=== PATIENT | female | born 1975 | race Caucasian/White ===

== ENCOUNTER 2022-09-06 17:25 | Emergency (ER) | payer MEDICARE, MEDICAID, SELFPAY ==
[2022-09-06 17:30] VITALS: BP 233/122; PULSE 83; RESP 16; TEMP 36.6; O2SAT 100; BMI 27.3
[2022-09-06 17:41] VITALS: PULSE 76; O2SAT 100
--- NOTE | 2022-09-06 17:49 | DI.US.S_ITS ---
PROCEDURE: US PELVIC COMPLETE INDICATIONS: BLEEDING TECHNIQUE: Real-time scanning was performed of the pelvic organs, with image documentation. Additional endovaginal scanning was necessary due to incomplete visualization of the adnexal and endometrial structures by transabdominal scanning. COMPARISON: None. FINDINGS: Uterus: Uterus is anteverted and normal in size at 7.6 x 5.0 x 3.9 cm. The myometrium is homogeneous. The endometrium measures 7 mm combined thickness. Ovaries: The right ovary measures 2.6 x 1.6 x 1.2 cm, with a calculated ovarian volume of 3 cc. The left ovary measures 1.6 x 1.6 x 1.5 cm, with a calculated ovarian volume of 2 cc. The ovaries have a normal sonographic appearance. Less than 12 follicles can be seen in each ovary. No adnexal masses are seen. Other: No pathologic free abdominal or pelvic fluid. Postvoid residual urinary bladder volume of 85 cc. IMPRESSION: 1. Endometrial thickness of 7 mm, unremarkable for a premenopausal patient. If the patient is postmenopausal, this thickness would be abnormal in the setting of postmenopausal bleeding and endometrial hyperplasia or carcinoma could be considered. 2. Unremarkable sonographic appearance of the ovaries. 3. Postvoid residual urinary bladder volume of 85 cc. We strive to produce accurate, complete, and clear reports of imaging services. To assist us in improving patient care, this report was composed using standard report templates and voice recognition software. Therefore, it may contain abnormal punctuation, insertions and/or omissions. Occasional wrong-word or sound-alike substitutions may occur. Though we review the report and make efforts to correct it, we do recommend that the report be read carefully in proper context to recognize any text inaccuracies. Dictated by: Clinton Hathaway M.D. on 09/06/2022 at 19:35 Approved by: Clinton Hathaway M.D. on 09/06/2022 at 19:39
[2022-09-06 18:00] VITALS: PULSE 71; O2SAT 100
[2022-09-06 18:01] VITALS: BP 211/97; PULSE 69; O2SAT 100
[2022-09-06 18:11] LABS: Add Manual Diff / Slide Review NO; Alanine Aminotransferase 24 IU/L (<35); Albumin 4.6 g/dL (3.5-5.0); Albumin Globulin Ratio 1.4 (1.0-2.8); Alkaline Phosphatase 67 U/L (38-126); Aspartate Aminotransferase 41 IU/L (14-36); BUN Creatinine Ratio 15.1 (6-22); Basophils Absolute Auto 100 /uL (0-100); Bilirubin Total 0.4 mg/dL (0.2-1.3); Blood Urea Nitrogen 11 mg/dL (7-17); Carbon Dioxide 24 mmol/L (22-32); Chloride 104 mmol/L (98-107); Eosinophils Absolute Auto 200 /uL (0-450); Eosinophils Percent Auto 2.8 % (2-4); Estimated Glomerular Filt Rate > 60 mL/min (>60); Globulin 3.3 g/dL (1.7-4.1); Glucose 173 mg/dL (70-100); HEMOLYSIS < 15 (0-50); Hematocrit 43.2 % (36-46); Lymphocytes Absolute Auto 2200 /uL (1100-4500); Lymphocytes Percent Auto 30.2 % (25-40); Magnesium 1.9 mg/dL (1.6-2.3); Mean Corpuscular HGB Conc 34.6 % (30-36); Mean Corpuscular Hemoglobin 30.7 PG (26-34); Mean Corpuscular Volume 88.6 fL (80-100); Monocytes Absolute Auto 400 /uL (0-900); Monocytes Percent Auto 5.8 % (3-14); Neutrophils Absolute Auto 4400 /uL (1500-7000); Neutrophils Percent Auto 60.2 % (50-75); Platelet Count 334 X10^3/uL (150-400); Potassium 3.3 mmol/L (3.4-5.1); Red Blood Cell Count 4.88 X10^6/uL (4.0-5.2); Red Cell Distribution Width 13.1 % (11.6-14.8); Sodium 140 mmol/L (137-145); Total Protein 7.9 g/dL (6.3-8.2); White Blood Cell Count 7.3 X10^3/uL (4.5-11.0)
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
[2022-09-06 18:27] LABS: HCG Quantitative /Beta subunit < 2.4 mIU/mL
--- NOTE | 2022-09-06 19:19 | PC.NURSE ---
Physician at bedside. States its ok for pt to be off the monitor.
[2022-09-06 19:24] LABS: RBC Urine >100/HPF (0-5/HPF); WBC Urine 10-30/HPF (0-5/HPF)
[2022-09-06 19:25] LABS: Bacteria Urine None Seen; Squamous Epithelial Cell Urine 1-5 /HPF (0-5/HPF)
[2022-09-06] MEDS: TRANEXAMIC ACID 1,000 MG in SODIUM CHLORIDE 0.9% 100 ML 200 MG IV (21:09)
[2022-09-06 21:54] VITALS: BP 176/92; PULSE 74; RESP 20; O2SAT 99
[2022-09-08 15:22] LABS: Free T4, Direct Thyroxine 1.23 ng/dL (0.78-2.19)
== END 2022-09-06 21:55 | disposition home or self-care (01) ==
PROVIDERS: Nurse Practitioner Critical Care Medicine; Emergency Provider Emergency Medicine
DX: N92.4 Excessive bleeding in the premenopausal period (principal); Z78.0 Asymptomatic menopausal state; F43.12 Post-traumatic stress disorder, chronic; R55 Syncope and collapse
CPT/HCPCS: 36415; 76830; 76856; 80053; 81003; 81015; 81025; 83735; 84439; 84443; 84702; 85025; 87086; 96365; 99284

== ENCOUNTER 2022-12-17 10:16 | Emergency (ER) | payer MEDICARE, OTHER, SELFPAY ==
[2022-12-17 10:23] VITALS: BP 186/87; PULSE 82; RESP 18; TEMP 36.8; O2SAT 99; BMI 26.6
--- NOTE | 2022-12-17 10:27 | DI.RAD.S_ITS ---
PROCEDURE: XR FOOT LT MIN 3V INDICATIONS: left foot pain/ swelling TECHNIQUE: 3 views of the foot were acquired. COMPARISON: None. FINDINGS: Bones: No fractures or dislocations. No suspicious bony lesions. Soft tissues: No tibiotalar joint effusion. Achilles tendon appears normal. IMPRESSION: No evidence acute bony abnormality. If clinical suspicion and/or symptoms persist, further assessment with repeat plain films, or advanced imaging (e.g., CT, MRI, or bone scan) may be helpful for further assessment. Dictated by: Akash Mcnamara M.D. on 12/17/2022 at 10:47 Approved by: Akash Mcnamara M.D. on 12/17/2022 at 10:52
[2022-12-17] MEDS: IBUPROFEN 400 MG TABLET 800 MG PO (10:32)
[2022-12-17] MEDS: ACETAMINOPHEN 325 MG TABLET 650 MG PO (10:32)
--- NOTE | 2022-12-17 11:26 | ED_ITS ---
HPI - Extremity Injury (Lower) <LAVERN Armenta - Last Filed: 12/17/22 12:51> General Chief Complaint: Extremity Injury, Lower Stated Complaint: foot injury Time Seen by Provider: 12/17/22 11:09 Source: patient Mode of arrival: Wheelchair History of Present Illness HPI Narrative: This is a 47-year-old female presents to the emergency department with foot injury and ankle pain that has progressed since an initial flexion injury of her foot. She states that she stepped on the garbage can lid and felt like she hurt her anterior midfoot on the right and then as she walked on it more, the pain had intensified. She states that she pivoted her weight while at the grocery store and then her pain got much worse in the same region. She states that the pain is worse with bearing weight and moving. Related Data Previous Rx's Medication Instructions Recorded bupropion HCl 150 mg tablet,12 hr 150 mg PO BEDTIME #30 ea 09/06/22 sustained-release gabapentin 100 mg capsule 100 mg PO BEDTIME #90 caps 09/06/22 lamotrigine 100 mg tablet 100 mg PO DAILY #60 tabs 09/06/22 (Subvenite) tranexamic acid 650 mg tablet 1,300 mg PO Q12H #20 tabs 09/06/22 diclofenac epolamine 1.3 % 1 patch topical BID #30 ea 12/17/22 transdermal 12 hour patch lidocaine 5 % topical patch 1 patch topical Q12HR PRN pain #30 12/17/22 ea oxycodone-acetaminophen 5 mg-325 1 tab PO Q8H PRN pain #10 tabs 12/17/22 mg tablet (Percocet) Allergies Allergy/AdvReac Type Severity Reaction Status Date / Time codeine Allergy Severe ITCHING Verified 12/17/22 10:27 erythromycin base Allergy Severe Rash Verified 12/17/22 10:27 Review of Systems <LAVERN Armenta - Last Filed: 12/17/22 12:51> Review of Systems ROS Unobtainable: All systems reviewed & are unremarkable except as noted in HPI and below Patient History <LAVERN Armenta - Last Filed: 12/17/22 12:51> Medical History Bipolar 1 disorder Chronic post-traumatic stress disorder Cristal-menopause Pulmonary embolism Social History Smoking Status: Former smoker Smoking Status: Former smoker alcohol intake frequency: 0-2 drinks per day Substance Use Type: does not use Exam <LAVERN Armenta - Last Filed: 12/17/22 12:51> Narrative Exam Narrative: MSK: Patient has tenderness over the medial midfoot and ATFL to palpation, mild erythema, edema, and pain is exacerbated by dorsiflexion and plantar extension over the ATFL, no CFL tenderness or tenderness over the Achilles tendon, PT and DP pulses are 2+, brisk cap refill, no ROM deficit. Patient states it is worse when bearing weight and it has progressed throughout the day. No tenderness over bilateral malleoli, no bony tenderness to palpation Initial Vital Signs Initial Vital Signs: Vital Signs Temperature 98.2 F 12/17/22 10:23 Pulse Rate 82 12/17/22 10:23 Respiratory Rate 18 12/17/22 10:23 Blood Pressure 186/87 H 12/17/22 10:23 Pulse Oximetry 99 12/17/22 10:23 Oxygen Delivery Method Room Air 12/17/22 10:23 <Beatrice Tello DO - Last Filed: 12/17/22 19:04> Initial Vital Signs Initial Vital Signs: Vital Signs Temperature 98.2 F 12/17/22 10:23 Pulse Rate 82 12/17/22 10:23 Respiratory Rate 18 12/17/22 10:23 Blood Pressure 186/87 H 12/17/22 10:23 Pulse Oximetry 99 12/17/22 10:23 Oxygen Delivery Method Room Air 12/17/22 10:23 Procedures <LAVERN Armenta - Last Filed: 12/17/22 12:51> Orthopedic Splinting/Casting Injury #1: Side: left Lower Extremity Injury Location: ankle and foot Lower Extremity Immobilizer: boot orthosis Post splinting neuro exam: intact Post splinting vascular exam: intact Placed by: Nursing Course <LAVERN Armenta - Last Filed: 12/17/22 12:51> Orders Ordered: ED Orders 12/17/22 10:27 XR foot LT min 3V Stat Discontinued Medications Acetaminophen (Acetaminophen 325 Mg Tablet) 650 mg PO NOW ONE Stop: 12/17/22 10:29 Last Admin: 12/17/22 10:32 Dose: 650 mg Documented By: JESUS Ibuprofen (Ibuprofen 400 Mg Tablet) 800 mg PO NOW ONE Stop: 12/17/22 10:29 Last Admin: 12/17/22 10:32 Dose: 800 mg Documented By: JESUS Lidocaine (Lidocaine Patch 1 Each Adh..Patch) 1 each TOP NOW ONE Stop: 12/17/22 11:31 Last Admin: 12/17/22 11:38 Dose: 1 each Documented By: RB Oxycodone/Acetaminophen (Oxycodone/Acetaminophen 5/325 Tablet) 1 tab PO NOW ONE Stop: 12/17/22 11:25 Last Admin: 12/17/22 11:38 Dose: 1 tab Documented By: RB Vital Signs Vital signs: Vital Signs - 8 hr 12/17/22 11:46 Pulse Rate [Left Dorsalis Pedis] 82 <Beatrice Tello DO - Last Filed: 12/17/22 19:04> Orders Ordered: ED Orders 12/17/22 10:27 XR foot LT min 3V Stat Discontinued Medications Acetaminophen (Acetaminophen 325 Mg Tablet) 650 mg PO NOW ONE Stop: 12/17/22 10:29 Last Admin: 12/17/22 10:32 Dose: 650 mg Documented By: JESUS Ibuprofen (Ibuprofen 400 Mg Tablet) 800 mg PO NOW ONE Stop: 12/17/22 10:29 Last Admin: 12/17/22 10:32 Dose: 800 mg Documented By: JESUS Lidocaine (Lidocaine Patch 1 Each Adh..Patch) 1 each TOP NOW ONE Stop: 12/17/22 11:31 Last Admin: 12/17/22 11:38 Dose: 1 each Documented By: TIERNEY Oxycodone/Acetaminophen (Oxycodone/Acetaminophen 5/325 Tablet) 1 tab PO NOW ONE Stop: 12/17/22 11:25 Last Admin: 12/17/22 11:38 Dose: 1 tab Documented By: RB Vital Signs Vital signs: Vital Signs - 8 hr 12/17/22 11:46 Pulse Rate [Left Dorsalis Pedis] 82 MDM - Extremity Injury (Lower) <LAVERN Armenta - Last Filed: 12/17/22 12:51> Imaging Data Extremity x-ray #1: Radiologist's Impression: [address] [address] XRay Report Signed Patient: Lourdes Davila MR#: [id number] : 1975 Acct:[id number] Age/Sex: 47 / F Date of Service: 12/17/22 Loc: ED Accession Number: [id number] ?? Procedure: XR foot LT min 3V Ordering Provider: Beatrice Tello D.O. PROCEDURE:? XR FOOT LT MIN 3V ? INDICATIONS:? left foot pain/ swelling ? TECHNIQUE:? 3 views of the foot were acquired.? ? COMPARISON:? None. ? FINDINGS:? ? Bones:? No fractures or dislocations.? No suspicious bony lesions.? ? Soft tissues:? No tibiotalar joint effusion.? Achilles tendon appears normal.? ? ? IMPRESSION:? No evidence acute bony abnormality. ? If clinical suspicion and/or symptoms persist, further assessment with repeat plain films, or advanced imaging (e.g., CT, MRI, or bone scan) may be helpful for further assessment. ? ? ? Dictated by: Akash Mcnamara M.D. on 12/17/2022 at 10:47 ? ? Approved by: Akash Mcnamara M.D. on 12/17/2022 at 10:52 ? MDM Narrative Medical decision making narrative: Chief Complaint: Left anterior medial foot pain Multiple etiologies for patient's complaint considered including, but not limited to: Ligamental sprain, gout, muscular sprain, acute fracture I have independently reviewed the patient's vital signs and nursing notes as well as prior records if available. Plan: X-ray over left foot where patient has tenderness is negative for acute osseous abnormality, patient has tenderness over her ATFL. patient was medicated with ibuprofen, Tylenol, Percocet, topical lidocaine patch was placed which improved her pain. She was prescribed lidocaine patches, Percocet and was fitted in a walking boot for an ATFL sprain. Encouraged to follow-up with prolonged orthopedics if she does not have improvement after 1-2 weeks. She is encouraged to elevate, ice, use pain control as needed. Social considerations that may affect disposition: none Questions are addressed and there is agreement with the plan and for follow-up. I consulted with the ED attending physician Dr. Tello as needed for higher level of care considerations and they were available for discussion and recommendations regarding plan of care and diagnostic testing. Patient is appropriate for outpatient management. Discharge Plan Departure Patient Disposition: Home Clinical Impression: Ankle sprain Qualifiers: Encounter type: initial encounter Involved ligament of ankle: anterior talofibular ligament Laterality: left Qualified Code(s): S93.492A - Sprain of other ligament of left ankle, initial encounter Instructions: Ankle Sprain Activity Restrictions/Additional Instructions: *You have been diagnosed with an anterior ligament sprain, please wear this walking boot until the pain improves, ice this frequently today and tomorrow to decrease the swelling and keep it elevated frequently. I hope you start feeling better soon, please mixing picker tender your medications and your gabapentin as needed. Schedule an appointment at [facility] if you do not have improvement after 1-2 weeks. Continue taking ibuprofen on a schedule with food and water to prevent stomach ulcer. Continue with 650 mg of Tylenol every 6 hours as needed, take Percocet every 8 hours as needed. It can cause constipation if you aren't eating high fiber and liquid diet. *What to do: *Please continue to take your regular medications as directed. [x ] New medication prescriptions sent to your pharmacy: [ [facility]] [ ] New medication written as a paper prescription [ ] No new medications given *Please call and schedule follow up with your primary care provider in 2-3 days, at least for an update. Let them know you were seen in the Emergency Department for the above problem. We will electronically transmit a record of today's note if your PCP or specialist is in our system. *If you do not have a primary care provider please contact [phone] to establish care with one of the [facility] primary care providers. *Return to the Emergency Department for worsening symptoms, inability to keep liquids down, fever greater than 101F, chills, or other concerning symptom. Prescriptions: New oxycodone-acetaminophen [Percocet] 5-325 mg tablet 1 tab PO Q8H PRN (Reason: pain) Qty: 10 0RF diclofenac epolamine 1.3 % patch 12 hour 1 patch topical BID Qty: 30 0RF lidocaine 5 % adhesive patch,medicated 1 patch topical Q12HR PRN (Reason: pain) Qty: 30 0RF Rx Instructions: leave on most painful area for up to 12 hrs No Action tranexamic acid 650 mg tablet 1,300 mg PO Q12H Qty: 20 6RF lamotrigine [Subvenite] 100 mg tablet 100 mg PO DAILY Qty: 60 1RF Rx Instructions: begin .5 tab nightly 1 wk, then 1pill nightly for 1 week, then 2 pills nightly to continue bupropion HCl 150 mg tablet sustained-release 12 hr 150 mg PO BEDTIME Qty: 30 1RF gabapentin 100 mg capsule 100 mg PO BEDTIME Qty: 90 1RF Rx Instructions: begin 100mg at night, increase by 100mg week 2, and week 3, goal 300MG at night Referrals: [facility] [Provider Group] Stand Alone Forms: Patient Portal/API <Beatrice Tello DO - Last Filed: 12/17/22 19:04> Cosign ED Attending Dorie Attestation: I was immediately available in the department for consultation. Documentation has been reviewed. Case not discussed.
[2022-12-17] MEDS: LIDOCAINE PATCH 1 EACH ADH..PATCH TOP (11:38)
[2022-12-17] MEDS: OXYCODONE/ACETAMINOPHEN 5/325 TABLET 1 TAB PO (11:38)
[2022-12-17 11:46] VITALS: PULSE 82
== END 2022-12-17 11:49 | disposition home or self-care (01) ==
PROVIDERS: Emergency Provider Nurse Practitioner Critical Care Medicine
DX: S93.492A Sprain of other ligament of left ankle, initial encounter (principal); X58.XXXA Exposure to other specified factors, initial encounter
CPT/HCPCS: 73630; 99283; 99284